=== PATIENT | male | born 1990 | race Hispanic/Latino ===

== ENCOUNTER 2023-03-19 00:54 | Emergency (ER) | payer BC ==
[~2023-03-19] VITALS: Ht 177.8 cm; Wt 140.2 kg
[2023-03-19] MEDS ORDERED: KETOROLAC 60 MG VIAL (30MG/ML) IM ONE (03:00)
[2023-03-19] MEDS ORDERED: MORPHINE 5 MG/ML VIAL (5MG OR GREATER DOSE) IM ONE (03:00)
[2023-03-19 05:37] VITALS: BP 135/78; PULSE 75; RESP 17; O2SAT 98
[2023-03-19] MEDS ORDERED: ACET-2079 PO (05:40)
[2023-03-19] MEDS ORDERED: IBUP-2077 PO (05:40)
== END 2023-03-19 05:56 | disposition home or self-care (01) ==
LOC: EDH 00:54
DX: S82.432A Displaced oblique fracture of shaft of left fibula, initial encounter for closed fracture (principal); W18.39XA Other fall on same level, initial encounter; Y93.02 Activity, running; Y92.89 Other specified places as the place of occurrence of the external cause; Y99.8 Other external cause status
CPT/HCPCS: 99284; 73600; 96372 ×2; J2270; J1885